=== PATIENT | female | born 1945 | race Caucasian/White ===

== ENCOUNTER → 2019-12-15 | Outpatient (RCR) | payer MEDICARE | LOC: RESP 14:39 | DX: J44.9 Chronic obstructive pulmonary disease, unspecified (principal) ==

== ENCOUNTER 2020-01-05 12:58 | Outpatient (RCR) | payer MEDICARE | END 2020-01-15 | LOC: RESP 12:58 | PROVIDERS: ATTEND Internal Medicine Pulmonary Disease | DX: J44.9 Chronic obstructive pulmonary disease, unspecified (principal) | CPT/HCPCS: G0238 ×5; G0424 ×5 ==

== ENCOUNTER 2020-01-31 12:54 | Outpatient (RCR) | payer MEDICARE | END 2020-02-14 | LOC: RESP 12:54 | PROVIDERS: ATTEND Internal Medicine Pulmonary Disease | DX: J44.9 Chronic obstructive pulmonary disease, unspecified (principal) | CPT/HCPCS: G0238 ×3; G0424 ×3 ==

== ENCOUNTER 2020-03-01 13:00 | Outpatient (RCR) | payer MEDICARE | END 2020-03-16 | LOC: RESP 13:00 | PROVIDERS: ATTEND Internal Medicine Pulmonary Disease | DX: J44.9 Chronic obstructive pulmonary disease, unspecified (principal) | CPT/HCPCS: 94664; G0238 ×6; G0424 ×6 ==

== ENCOUNTER 2020-04-10 12:51 | Outpatient (RCR) | payer MEDICARE | END 2020-04-16 | LOC: RESP 12:51 | PROVIDERS: ATTEND Internal Medicine Pulmonary Disease | DX: J44.9 Chronic obstructive pulmonary disease, unspecified (principal) | CPT/HCPCS: G0238 ×5; G0424 ×5 ==

== ENCOUNTER 2020-04-26 12:55 | Outpatient (RCR) | payer MEDICARE | END 2020-05-14 | LOC: RESP 12:55 | PROVIDERS: ATTEND Internal Medicine Pulmonary Disease | DX: J44.9 Chronic obstructive pulmonary disease, unspecified (principal) | CPT/HCPCS: G0238 ×4; G0424 ×4 ==

== ENCOUNTER → 2020-06-14 | Outpatient (RCR) | payer MEDICARE | LOC: RESP 05-15 13:32 | DX: J44.9 Chronic obstructive pulmonary disease, unspecified (principal) | CPT/HCPCS: G0238 ×8; G0424 ×8 ==

== ENCOUNTER 2020-06-21 13:00 | Outpatient (RCR) | payer MEDICARE | END 2020-07-14 | LOC: RESP 13:00 | PROVIDERS: ATTEND Internal Medicine Pulmonary Disease | DX: J44.9 Chronic obstructive pulmonary disease, unspecified (principal) | CPT/HCPCS: G0238 ×2; G0424 ×2 ==